=== PATIENT | female | born 1980 | race Caucasian/White ===

== ENCOUNTER → 2016-09-05 | Day surgery (SDC) | payer OTHER ==
[2016-08-15 12:08] LABS: BASO % 0.5 %; BASO ABS # 0.02 K/uL (0-0.2); COMPLETE YES; EOS % 2.4 %; HEMATOCRIT 39.2 % (37-47); IG% 0.2 %; LYMPH % 40.6 %; LYMPH ABS # 1.68 K/uL (1.2-3.4); MEAN CELL VOLUME 87.9 fL (80-100); MEAN CORPUSCULAR HEMOGLOBIN 28.7 pg (25-34); MEAN CORPUSCULAR HGB CONC 32.7 g/dl (32-36); MEAN PLATELET VOLUME 12.5 fL (7.4-10.4); MONO % 7.2 %; NEUT % 49.1 %; PLATELET COUNT 278 K/uL (130-400); RED BLOOD COUNT 4.46 M/uL (4.2-5.4); WHITE BLOOD COUNT 4.14 K/uL (4.8-10.8)
[2016-08-22 09:17] VITALS: Ht 180.3 cm; Wt 81.8 kg
[~2016-09-05] VITALS: Ht 180.3 cm; Wt 81.8 kg
[~2016-09-05] MED LIST: ATROPINE SULFATE 0.1 MG/ML 5ML SYR IV PRN; DEXAMETHASONE SOD INJ 4 MG/ML VIAL ONE; EpHEDrine SULFATE INJ 50 MG/ML AMP IV PRN; FENTANYL CITRATE INJ 50 MCG/1 ML 2 ML VIAL IV PRN; FENTANYL CITRATE INJ 50 MCG/1 ML 2 ML VIAL ONE; HYDROmorphone INJ 0.5 MG/0.5 ML SYR IV PRN; IBUPROFEN 600 MG TAB PO PRN; KETOROLAC TROMETHAMINE 30 MG/ML VIAL IV. PRN; LACTATED RINGER'S 1000ML 1,000 ML IV SCH; LETR2TAB PO; LIDOCAINE HCL 2% 2 ML VIAL (20MG/ML) ONE; MIDAZOLAM HCL 1 MG/ML 2ML VIAL ONE; ONDANSETRON INJ 2 MG/ML 2 ML VIAL IV PRN; ONDANSETRON INJ 2 MG/ML 2 ML VIAL ONE; OXYCODONE/ACETAMINOPHEN 5-325 TAB PO PRN; PROMETHAZINE HCL INJ 25 MG in SODIUM CHLORIDE 0.9% 50ML 50 ML IV PRN; PROPOFOL IV EMULSION 10 MG/ML 20 ML VIAL IV ONE; SERT-234 PO; SODIUM CHLORIDE 0.9% 1000ML 1,000 ML IV SCH
--- NOTE | 2016-09-05 11:06 | History & Physical Bridge - [place] ---
H&P Re-Evaluation Bridge Note: I have examined the patient, reviewed the History & Physical and in the interval since the performance of the History & Physical I have noted the following changes of clinical significance: No changes noted
--- NOTE | 2016-09-05 11:35 | [facility] Post Operative Brief Note ---
Immediate Operative Summary Operative Date Sep 05, 2016. Pre-Operative Diagnosis Endometrial polyp Post-Operative Diagnosis same Procedure(s) Performed Dilatation And Curettage, Hysteroscopy, Polypectomy via Myosure Surgeon Dr Monzon Lending Activities Supervisor Surgeon(s) 0 Estimated Blood Loss 10 ml Findings Benign polyp Specimens A.. Endometrial currettings B. Myosure Specimen Drains None Anesthesia General Complication(s) None Disposition Recovery Room / PACU
--- NOTE | 2016-09-05 11:36 | Discharge Instructions ---
Discharge Instructions Date of Service Sep 05, 2016. Admission Reason for Admission: Endometrial Polyp Discharge Discharge Diagnosis / Problem: endo polyp Discharge Goals Goal(s): Routine recovery after surgery Activity Recommendations Activity Limitations: per Instructions/Follow-up section . Instructions / Follow-Up Instructions / Follow-Up ACTIVITY RECOMMENDATIONS: * Avoid tampons, douching, hot tubs, pools, and intercourse until bleeding has stopped. * May shower as usual. * No strenuous activity for 24-48 hours. After 24-48 hours, you may do anything you feel like doing (driving and sports are okay). SPECIAL CARE INSTRUCTIONS: Special Diet: * Mild nausea may occur in the immediate post-operative period. * Take clear liquids such as tea, cola or bouillon until all nausea has subsided; you may then resume your normal diet. Special Care: * Light bleeding and vaginal spotting can last from a few days to 3-4 weeks. Call your doctor if bleeding becomes heavier than the heaviest part of your period. * Check your temperature twice a day for one week. If it goes above 100.4 degrees Fahrenheit (38.0 Celsius), notify your doctor. * Call your doctor's office for an appointment for 6 weeks after your surgery. FOLLOW-UP VISIT: Call your doctor's office for an appointment for 6 weeks after your surgery. Current Hospital Diet Patient's current hospital diet: Discharge Diet Recommended Diet: Regular Diet Procedures Procedures Performed: Dilatation And Curettage, Hysteroscopy, Polypectomy via Myosure Pending Studies Studies pending at discharge: no Medical Emergencies . Who to Call and When: Medical Emergencies: If at any time you feel your situation is an emergency, please call 911 immediately. . Non-Emergent Contact Non-Emergency issues call your: Primary Care Provider . . "Provider Documentation" section prepared by Adams Day. VTE Core Measure Inpt VTE Proph given/why not?: Treatment not indicated
--- NOTE | 2016-09-05 12:30 | OPERATIVE REPORT ---
DATE OF OPERATION: 09/05/2016 PREOPERATIVE DIAGNOSIS: Endometrial polyp. POSTOPERATIVE DIAGNOSIS: Endometrial polyp. PROCEDURES: Hysteroscopy, polypectomy with MyoSure. SURGEON: Dr. Day. LASER TECHNICIAN: None. ESTIMATED BLOOD LOSS: 10 mL. FINDINGS: Benign polyp. SPECIMENS: MyoSure specimen. DRAINS: None. ANESTHETIC: General. COMPLICATIONS: None. DISPOSITION: Recovery room. DESCRIPTION OF PROCEDURE: Mayte was given a general anesthetic, prepped and draped in dorsal lithotomy position in [facility]. Bladder drained with in and out catheter and then uterus examined. It was retroverted, retroflexed, and normal size. A weighted speculum placed in the vagina. Single tooth tenaculum on the anterior lip of the cervix. Cervix was then dilated methodically starting #13 dilator, progressing sequentially until a #25 dilator. Using the MyoSure hysteroscope with normal saline as her base solution, I was then able to visualize the cavity. There was a benign appearing polyp at the fundus of the uterus, the posterior aspect of the uterine wall as well was somewhat thickened and had a polypoid appearance. It also possibly was just thickened. Both tubal ostia were visualized. There was no sign of perforation. MyoSure was then used to resect the polyp, first the fundal one and then the back wall thickness of the endometrium. There was no sign of perforation and we were able to remove all of the visible tissue. At the end of the procedure, estimated blood loss 10 mL. Estimated fluid loss is 130 mL. Sponge, needle and instrument counts were correct. The patient sent to recovery in stable condition. IV Toradol given as well. I attest to the content of the Intraoperative Record and any orders documented therein. Any exceptio ns are noted below.
[2016-09-05 12:36] VITALS: TEMP 36.6
--- NOTE | 2016-09-05 13:01 | Anesthesiology Progress Note ---
Anesthesia Post Op Note Date & Time Sep 05, 2016 at 13:01 Vital Signs Pain Intensity: 0 Vital Signs Past 12 Hours Date Time Temp Pulse Resp B/P Pulse Ox O2 Delivery O2 Flow Rate FiO2 09/05/16 12:36 36.6 61 16 116/81 100 Room Air 09/05/16 12:26 111/70 09/05/16 12:23 37.0 09/05/16 12:22 64 10 99 09/05/16 12:22 62 10 09/05/16 12:21 112/73 09/05/16 12:20 59 9 09/05/16 12:20 59 9 100 09/05/16 12:15 57 15 112/72 98 09/05/16 12:15 58 15 09/05/16 12:10 59 8 09/05/16 12:10 60 8 108/72 100 09/05/16 12:06 108/69 09/05/16 12:05 55 8 100 09/05/16 12:05 55 8 09/05/16 12:04 57 11 100 09/05/16 12:04 57 11 09/05/16 12:01 112/67 09/05/16 11:59 61 9 100 09/05/16 11:59 61 9 09/05/16 11:56 116/67 09/05/16 11:54 57 10 100 09/05/16 11:54 57 10 09/05/16 11:51 108/74 09/05/16 11:49 62 16 100 09/05/16 11:49 62 16 09/05/16 11:47 36.8 62 14 117/78 100 Diffusion Mask 6 09/05/16 11:45 112/78 09/05/16 11:44 63 09/05/16 11:44 63 117/75 100 09/05/16 10:39 37 80 16 100/69 96 Room Air Notes Mental Status: alert / awake / arousable, participated in evaluation Pt Amnestic to Procedure: Yes Nausea / Vomiting: adequately controlled Pain: adequately controlled Airway Patency, RR, SpO2: stable & adequate BP & HR: stable & adequate Hydration State: stable & adequate Anesthetic Complications: no major complications apparent
[2016-09-05 13:08] VITALS: BP 128/83; PULSE 62; O2SAT 98
== END | disposition home or self-care (01) ==
LOC: X.SURG 10:28
PROVIDERS: ATTEND Obstetrics & Gynecology
DX: N84.0 Polyp of corpus uteri (principal); N97.9 Female infertility, unspecified; Z98.890 Other specified postprocedural states

== ENCOUNTER 2016-10-13 09:30 | Outpatient (CLI) | payer OTHER ==
--- NOTE | 2016-10-13 10:04 | Progress Note ---
Progress Note Date of Service Oct 13, 2016. Progress Note Patient presents for IUI #1. She presents with her SO. The numbers , names and birthdates on the band, specimen and lab slip reviewed and verified by myself and Katelin Baldwin RN. IUI done without difficulty--speculum placed, curved finance effectiveness manager inserted into the cervix easily. No complications.
== END 2016-10-13 10:19 | disposition home or self-care (01) ==
LOC: C.OPB 09:30 → C.LD 09:32 → C.OPB 10:19
PROVIDERS: ATTEND Obstetrics & Gynecology
DX: Z31.89 Encounter for other procreative management (principal)

== ENCOUNTER → 2016-10-13 | Outpatient (CLI) | payer OTHER ==
[~2016-10-13] MED LIST changes: -ATROPINE SULFATE 0.1 MG/ML 5ML SYR IV PRN; -DEXAMETHASONE SOD INJ 4 MG/ML VIAL ONE; -EpHEDrine SULFATE INJ 50 MG/ML AMP IV PRN; -FENTANYL CITRATE INJ 50 MCG/1 ML 2 ML VIAL IV PRN; -FENTANYL CITRATE INJ 50 MCG/1 ML 2 ML VIAL ONE; -HYDROmorphone INJ 0.5 MG/0.5 ML SYR IV PRN; -IBUPROFEN 600 MG TAB PO PRN; -KETOROLAC TROMETHAMINE 30 MG/ML VIAL IV. PRN; -LACTATED RINGER'S 1000ML 1,000 ML IV SCH; -LIDOCAINE HCL 2% 2 ML VIAL (20MG/ML) ONE; -MIDAZOLAM HCL 1 MG/ML 2ML VIAL ONE; -ONDANSETRON INJ 2 MG/ML 2 ML VIAL IV PRN; -ONDANSETRON INJ 2 MG/ML 2 ML VIAL ONE; -OXYCODONE/ACETAMINOPHEN 5-325 TAB PO PRN; -PROMETHAZINE HCL INJ 25 MG in SODIUM CHLORIDE 0.9% 50ML 50 ML IV PRN; -PROPOFOL IV EMULSION 10 MG/ML 20 ML VIAL IV ONE; -SODIUM CHLORIDE 0.9% 1000ML 1,000 ML IV SCH
== END | disposition home or self-care (01) ==
LOC: C.LAB 08:32
PROVIDERS: ATTEND Obstetrics & Gynecology
DX: N97.9 Female infertility, unspecified (principal)

== ENCOUNTER → 2016-11-01 | Outpatient (CLI) | payer OTHER | END | disposition home or self-care (01) | LOC: C.LAB1850 09:28 | PROVIDERS: ATTEND Obstetrics & Gynecology | DX: Z32.00 Encounter for pregnancy test, result unknown (principal) ==

== ENCOUNTER → 2017-01-18 | Outpatient (CLI) | payer OTHER ==
[2017-01-18 12:22] LABS: URINE APPEARANCE CLEAR (CLEAR); URINE BILIRUBIN NEG (NEG); URINE COLOR DK YELLOW; URINE NITRITE NEG (NEG); URINE PH 6.5 (4.5-7.5); URINE SPECIFIC GRAVITY 1.024 (1.000-1.030); UROBILINOGEN NEG (NEG)
[2017-01-18 12:23] LABS: COMPLETE YES; HEMATOCRIT 36.5 % (37-47); IG% 0.3 %; LYMPH % 22.9 %; LYMPH ABS # 1.36 K/uL (1.2-3.4); MEAN CELL VOLUME 86.7 fL (80-100); MEAN CORPUSCULAR HEMOGLOBIN 29.5 pg (25-34); MEAN PLATELET VOLUME 12.9 fL (7.4-10.4); NEUT % 70.8 %; PLATELET COUNT 205 K/uL (130-400); RED BLOOD COUNT 4.21 M/uL (4.2-5.4); WHITE BLOOD COUNT 5.95 K/uL (4.8-10.8)
[2017-01-18 12:34] LABS: MANUAL MICROSCOPIC REQUIRED? NO; REVIEW REQ? NO
[2017-01-20 14:08] LABS: CHLAMYDIA TRACH RNA*** NOT DETECTED (NOT DETECTED); GC (NEIS GONORRHOEAE)RNA** NOT DETECTED (NOT DETECTED)
== END | disposition home or self-care (01) ==
LOC: C.LAB1850 10:14
PROVIDERS: ATTEND Obstetrics & Gynecology
DX: O09.00 Supervision of pregnancy with history of infertility, unspecified trimester (principal); Z3A.00 Weeks of gestation of pregnancy not specified

== ENCOUNTER → 2017-01-18 | Outpatient (CLI) | payer OTHER | END | disposition home or self-care (01) | LOC: C.PAPS 11:12 | PROVIDERS: ATTEND Obstetrics & Gynecology | DX: O09.00 Supervision of pregnancy with history of infertility, unspecified trimester (principal); Z3A.00 Weeks of gestation of pregnancy not specified ==

== ENCOUNTER → 2017-04-17 | Outpatient (CLI) | payer OTHER ==
[2017-04-17 12:09] LABS: HEMATOCRIT 32.5 % (37-47)
[2017-04-17 12:34] LABS: GTGD 50 Grams
[2017-04-17 14:26] LABS: URINE APPEARANCE CLEAR (CLEAR); URINE BILIRUBIN NEG (NEG); URINE COLOR DK YELLOW; URINE EPITHELIAL CELL AUTO >30 /lpf (0-5); URINE NITRITE NEG (NEG); URINE PH 7.5 (4.5-7.5); URINE SPECIFIC GRAVITY 1.019 (1.000-1.030); UROBILINOGEN NEG (NEG)
[2017-04-17 14:31] LABS: MANUAL MICROSCOPIC REQUIRED? NO; REVIEW REQ? NO
== END | disposition home or self-care (01) ==
LOC: C.LAB1850 10:25
PROVIDERS: ATTEND Obstetrics & Gynecology
DX: Z34.83 Encounter for supervision of other normal pregnancy, third trimester (principal); Z3A.00 Weeks of gestation of pregnancy not specified

== ENCOUNTER → 2017-06-06 | Outpatient (CLI) | payer OTHER ==
[2017-06-06 12:31] LABS: PATIENT HEIGHT 190.5 cm
[2017-06-06 13:34] LABS: URINE TOTAL PROTEIN 24.2 mg/dl (0-11.9)
[2017-06-06 14:19] LABS: CREATININE 0.58 mg/dl (0.6-1.2)
== END | disposition home or self-care (01) ==
LOC: C.LAB1850 12:13
PROVIDERS: ATTEND Obstetrics & Gynecology
DX: O28.1 Abnormal biochemical finding on antenatal screening of mother (principal); O12.10 Gestational proteinuria, unspecified trimester

== ENCOUNTER → 2017-06-20 | Outpatient (CLI) | payer OTHER | END | disposition home or self-care (01) | LOC: C.LABSPEC 13:18 | PROVIDERS: ATTEND Obstetrics & Gynecology | DX: Z34.83 Encounter for supervision of other normal pregnancy, third trimester (principal) ==

== ENCOUNTER 2017-07-18 14:23 | Emergency (ER) | payer SELFPAY | END 2017-07-18 14:52 | disposition left against medical advice (07) | LOC: C.EDB 14:27 ==

== ENCOUNTER 2021-11-02 11:41 | Observation (INO) ==
[2021-11-02] MEDS ORDERED: MoRPHine SULFATE 4 MG/ML 1 ML CARP\\VIAL IV STA (12:36)
[2021-11-02] MEDS ORDERED: ONDANSETRON INJ 2 MG/ML 2 ML VIAL IV STA (12:36)
[2021-11-02] MEDS ORDERED: SODIUM CHLORIDE 0.9% 1000ML 1,000 ML IV SCH (12:37)
--- NOTE | 2021-11-02 13:02 | Emergency Department Note ---
History of Present Illness General Chief complaint: Abdominal Pain Stated complaint: PAIN IN UPPER ABDOMINAL GOING TO BACK Time Seen by Provider: 11/02/21 11:50 History of Present Illness Maximum Pain Intensity: 8 Patient is a 41-year-old female with past medical history significant for a nxiety, depression, Graves' disease, who presents emergency department for evaluation of severe right upper quadrant abdominal pain x7 hours. She notes that she has had 2 prior episodes of similar pain earlier this week, 4 days ago and 2 days ago. She reports a constant, gnawing pain in the right upper quadrant that radiates through to her back. It woke her at 0600 today. She currently rates her pain a 9/10. She has not tried taking any medications for her symptoms. She denies any associated fever, chills, nausea, vomiting or urinary symptoms. She states that she has diarrhea routinely from the onset Graves disease, denies any changes in her bowel habits or bloody stools. She uses a NuvaRing for contraceptive, last menstrual period was about 3 weeks ago. She states that the prior episodes of pain lasted her 5 hours or so, but did go away nearly completely. She was only left with a 1/10 aching pain. She did try ibuprofen earlier this week which did help. She was seen at her primary care provider's office this morning, but they directed her to the emergency department due to her pain and symptoms. Remote family history of gallbladder disease. She reports that was diagnosed with presumptive Graves' disease recently, but additional testing could not be done at that time to confirm. She is due to see endocrinology in December. Patient has been seeing a wellness clinic since. She had dietary allergy testing which was positive for nuts, eggs and beans. She also has a gluten allergy, and completely eliminated this from her diet in the fall. She now follows a Paleo/AIP diet. Home Medications Medication Instructions Recorded Confirmed Type sertraline 100 mg tablet 100 mg PO DAILY 04/25/20 04/25/20 History Allergies Allergy/AdvReac Type Severity Reaction Status Date / Time latex Allergy Unknown BROKE OUT Verified 04/25/20 18:43 IN RASH paroxetine Allergy Unknown ITCHING, Verified 04/25/20 18:43 RACING THOUGHTS Past Med/Surg History Medical History Anxiety Depression Gluten intolerance Graves disease Surgical History No history of previous surgery Social History Smoking Status: Never smoker marital status: Current Living Situation: Family current occupational status: employed Feels Safe at Home: Yes Review of Systems A total of 10 systems reviewed and were otherwise negative Physical Exam Vital Signs Vital Signs - 24 hr 11/02/21 11:44 11/02/21 13:55 11/02/21 14:40 Temperature 36.3 C L Temperature Source Oral Pulse Rate 59 L Pulse Rate [Apical] 54 L 61 Pulse Rhythm [Apical] Regular Regular Pulse Strength [Apical] Normal Normal Respiratory Rate 15 14 18 Respiratory Effort / Characteristics Non-Labored Spontaneous Non-Labored Spontaneous Respiratory Depth Normal Normal Respiratory Pattern Regular Blood Pressure [Right Arm] 134/89 131/78 Blood Pressure Mean [Right Arm] 104 95 Blood Pressure Position [Right Arm] Semi-fowlers Lying Pulse Oximetry 100 100 100 Oxygen Delivery Method Room Air Room Air Room Air Sepsis Recent Fever Within 48 Hours No Sepsis New/Unexplained Change in Mental Status N/A Sepsis Action Taken by Nursing No Action Required 11/02/21 16:00 Temperature Temperature Source Pulse Rate Pulse Rate [Apical] Pulse Rhythm [Apical] Pulse Strength [Apical] Respiratory Rate 18 Respiratory Effort / Characteristics Non-Labored Respiratory Depth Normal Respiratory Pattern Blood Pressure [Right Arm] Blood Pressure Mean [Right Arm] Blood Pressure Position [Right Arm] Pulse Oximetry 95 Oxygen Delivery Method Room Air Sepsis Recent Fever Within 48 Hours Sepsis New/Unexplained Change in Mental Status Sepsis Action Taken by Nursing CONSTITUTIONAL: Tearful, uncomfortable appearing 41-year-old female who is awake and alert and laying on her right side on the gurney. EYES: Pupils equal, round, reactive to light and accommodation. EOMs intact without nystagmus. Sclera are anicteric. ENT: Tympanic membranes intact, with normal landmarks. External canals are clear. Oral and nasopharynx are clear. Mucous membranes are moist, no lesions, tongue and gums appear normal. CARDIOVASCULAR: Regular rate and rhythm, with normal S1 and S2, no murmur or gallop or rub is heard. No carotid bruits auscultated. No JVD. Peripheral pulses easy to palpable. RESPIRATORY: Breath sounds equal and clear to auscultation without wheezes, rales, or rhonchi heard. Full and equal chest expansion without accessory muscle use or retractions. GI: Bowel sounds are present. Abdomen is soft, mildly distended, tender to palpation and percussion in the epigastric and the right upper quadrant with voluntary guarding. MUSCULOSKELETAL: Full range of motion of extremities x 4 with good strength. No cyanosis, edema, joint tenderness or swelling. No deformity. INTEGUMENTARY: No lesions or rash, normal skin turgor. NEUROLOGICAL: Alert, oriented, and cooperative. Cranial nerves, sensation and strength grossly intact. Pupils round, equal, and react to light, EOMs are full. LYMPH: No lymphadenopathy. Course Course The patient was seen and assessed as above. Old records are reviewed. She presents the emergency department for evaluation of right upper quadrant abdominal pain, she has had a few episodes earlier this week. IV lock was initiated and laboratory studies were collected. CBC with differential, CMP, lipase, urinalysis, serum hCG were ordered. She was given a liter bolus of normal saline solution, then 250 cc/h. She was medicated with Zofran 4 mg and morphine 4 mg IV. She was made NPO. Laboratory studies note a normal white count. Electrolytes renal functions are normal. Transaminases and lipase are not elevated. Serum hCG is negative. Nursing staff contacted me after the patient returned from ultrasound, stating that the pain was returning. She was ordered morphine 6 mg IV. Gallbladder ultrasound notes cholelithiasis with findings concerning for acute cholecystitis. No biliary ductal dilatation. Patient was reassessed. She had not received the additional morphine. Laboratory studies and gallbladder ultrasound findings were reviewed with her and her spouse. Consultation was placed with general surgery, Padmini Cabezas PA-C working with Dr. Yury Cano. They evaluated the patient in the emergency department and will plan to take her to the OR this evening. Please refer to surgical H&P and orders for further information. A COVID swab was obtained. Administered Medications Sodium Chloride (Nss 1000ml) 1,000 mls @ 250 mls/hr IV .Q4H [facility] Stop: 12/02/21 12:44 Last Admin: 11/02/21 15:16 Dose: 250 mls/hr Documented by: [id number] Discontinued Medications Sodium Chloride (Nss 1000ml) 1,000 mls @ 999 mls/hr IV .Q1H1M [facility] Stop: 11/02/21 13:37 Last Infusion: 11/02/21 15:04 Dose: 0 mls/hr Documented by: [id number] Admin: 11/02/21 13:09 Dose: 999 mls/hr Documented by: [id number] Morphine Sulfate (Morphine Sulfate 4 Mg/Ml 1 Ml Carp\Vial) 4 mg IV NOW STA Stop: 11/02/21 12:37 Last Admin: 11/02/21 13:08 Dose: 4 mg Documented by: [id number] Morphine Sulfate (Morphine Sulfate 10 Mg/Ml Carp/Vial) 6 mg IV NOW STA Stop: 11/02/21 14:41 Last Admin: 11/02/21 15:17 Dose: 6 mg Documented by: [id number] Ondansetron HCl (Ondansetron Inj 2 Mg/Ml 2 Ml Vial) 4 mg IV NOW STA Stop: 11/02/21 12:37 Last Admin: 11/02/21 13:08 Dose: 4 mg Documented by: [id number] Medical Decision Making Differential Diagnosis Differential diagnoses entertained included GERD, gastritis, esophagitis, peptic ulcer disease, acute pancreatitis, biliary colic, acute cholecystitis, ascending cholangitis, fell obstruction, perforation, abscess, mass or malignancy, among others. Medical Records Attestation: I reviewed the patient's medical records. Home Medications Current Medication List: was personally reviewed by me Laboratory Data Attestation: I reviewed the patient's lab results. Result diagrams: 11/02/21 13:15 11/02/21 13:15 Lab Results 11/02/21 11/02/21 11/02/21 Range/Units 13:15 13:15 13:15 WBC 7.97 (4.8-10.8) K/uL RBC 4.68 (4.2-5.4) M/uL Hgb 13.8 (12.0-16.0) g/dL Hct 41.4 (37-47) % MCV 88.5 (80-100) fL MCH 29.5 (25-34) pg MCHC 33.3 (32-36) g/dL RDW Std Deviation 41.3 (36.4-46.3) fL RDW Coeff of Di 12.8 (11.5-14.5) % Plt Count 223 (130-400) K/uL MPV 13.7 H (7.4-10.4) fL Immature Gran % (Auto) 0.3 % Neut % (Auto) 64.1 % Lymph % (Auto) 27.4 % Love % (Auto) 6.5 % Eos % (Auto) 1.6 % Baso % (Auto) 0.1 % Neut # (Auto) 5.11 (1.4-6.5) K/uL Lymph # (Auto) 2.18 (1.2-3.4) K/uL Love # (Auto) 0.52 (0.11-0.59) K/uL Eos # (Auto) 0.13 (0-0.5) K/uL Baso # (Auto) 0.01 (0-0.2) K/uL Immature Gran # (Auto) 0.02 (0.00-0.02) K/uL Sodium 140 (136-145) mmol/L Potassium 3.6 (3.5-5.1) mmol/L Chloride 109 H (98-107) mmol/L Carbon Dioxide 23 (21-32) mmol/L Anion Gap 8 (3-11) BUN 11 (6-23) mg/dl Creatinine 0.73 (0.6-1.2) mg/dl Est Cr Clr Drug Dosing Not Reportable Est GFR ( Amer) 117.7 ml/min Est GFR (Non-Af Amer) 101.6 ml/min BUN/Creatinine Ratio 15.1 (10-20) Glucose 89 (70-99(Fasting)) mg/dl Calcium 9.4 (8.5-10.1) mg/dl Total Bilirubin 0.5 (0.2-1.0) mg/dl AST 13 (13-39) U/L ALT 16 (7-52) U/L Alkaline Phosphatase 58 (34-104) U/L Total Protein 6.5 (6.0-8.3) gm/dl Albumin 3.8 (3.4-5.0) gm/dl Globulin 2.7 (2.5-4.0) gm/dl Albumin/Globulin Ratio 1.4 (0.9-2) Lipase 35 (11-82) U/L HCG, Qual Negative (Negative) SARS-CoV-2, RNA, NAAT (NEGATIVE) 11/02/21 Range/Units 15:30 WBC (4.8-10.8) K/uL RBC (4.2-5.4) M/uL Hgb (12.0-16.0) g/dL Hct (37-47) % MCV (80-100) fL MCH (25-34) pg MCHC (32-36) g/dL RDW Std Deviation (36.4-46.3) fL RDW Coeff of Di (11.5-14.5) % Plt Count (130-400) K/uL MPV (7.4-10.4) fL Immature Gran % (Auto) % Neut % (Auto) % Lymph % (Auto) % Love % (Auto) % Eos % (Auto) % Baso % (Auto) % Neut # (Auto) (1.4-6.5) K/uL Lymph # (Auto) (1.2-3.4) K/uL Love # (Auto) (0.11-0.59) K/uL Eos # (Auto) (0-0.5) K/uL Baso # (Auto) (0-0.2) K/uL Immature Gran # (Auto) (0.00-0.02) K/uL Sodium (136-145) mmol/L Potassium (3.5-5.1) mmol/L Chloride (98-107) mmol/L Carbon Dioxide (21-32) mmol/L Anion Gap (3-11) BUN (6-23) mg/dl Creatinine (0.6-1.2) mg/dl Est Cr Clr Drug Dosing Est GFR ( Amer) ml/min Est GFR (Non-Af Amer) ml/min BUN/Creatinine Ratio (10-20) Glucose (70-99(Fasting)) mg/dl Calcium (8.5-10.1) mg/dl Total Bilirubin (0.2-1.0) mg/dl AST (13-39) U/L ALT (7-52) U/L Alkaline Phosphatase (34-104) U/L Total Protein (6.0-8.3) gm/dl Albumin (3.4-5.0) gm/dl Globulin (2.5-4.0) gm/dl Albumin/Globulin Ratio (0.9-2) Lipase (11-82) U/L HCG, Qual (Negative) SARS-CoV-2, RNA, NAAT NEGATIVE (NEGATIVE) Imaging Data Attestation: I personally reviewed and interpreted this imaging study as fo llows: Radiologist's Impression: Gallbladder Ultrasound 11/02/21 12:36 US gallbladder HISTORY: 41 years-old Female RUQ PAIN X 4 DAYS acute right upper quadrant abdominal pain COMPARISON: CTA chest 04/25/2020 TECHNIQUE: Multiple real-time sonographic images of the abdominal right upper quadrant were obtained assessing grayscale appearance and color flow FINDINGS: The visualized pancreas is unremarkable. The liver measures up to 17.1 cm in length and is otherwise unremarkable. There is a mobile 1.3 cm stone noted w ithin the distended gallbladder neck. Trace pericholecystic fluid the gallbladder wall measures up to 4 mm. There is reported right upper quadrant tenderness. The sonographic Ayala sign was unable to be obtained secondary to recent pain medication. Common bile duct measures 6 mm. Unremarkable right kidney without hydronephrosis. IMPRESSION: 1. Cholelithiasis. The gallbladder is distended with mild wall thickening and trace pericholecystic fluid. Findings are suspicious for acute cholecystitis. 2. No biliary ductal dilation. ACT 112: Negative or not required by law. The above report was generated using voice recognition software. It may contain grammatical, syntax or spelling errors. Electronically signed by: Leandro Wright M.D. 11/02/2021 2:48 PM MDM Narrative See ED Course. Impression & Plan Acute calculous cholecystitis Discharge Plan Visit Data Chief Complaint: Abdominal Pain Stated Complaint: PAIN IN UPPER ABDOMINAL GOING TO BACK ED Provider: [facility] Midlevel Provider: Nino Zhang Discharge Problem: Acute calculous cholecystitis Patient Disposition: Being Evaluated by Surgeon Forms Stand Alone Forms: My [facility] [employer] Prescriptions Prescriptions: No Action sertraline 100 mg tablet 100 mg PO DAILY RF: 0 Referrals Referrals: Nina Thompson CRNP [Primary Care Provider] -
[2021-11-02 13:29] LABS: Basophils # (auto) 0.01 K/uL (0-0.2); Basophils % (auto) 0.1 %; Eosinophils # (auto) 0.13 K/uL (0-0.5); Eosinophils % (auto) 1.6 %; Hematocrit (blood only) 41.4 % (37-47); Hemoglobin 13.8 g/dL (12.0-16.0); Immature Granulocytes # (auto) 0.02 K/uL (0.00-0.02); Immature Granulocytes % (auto) 0.3 %; Lymphocytes # (auto) 2.18 K/uL (1.2-3.4); Lymphocytes % (auto) 27.4 %; Mean Corpuscular Hemoglobin 29.5 pg (25-34); Mean Corpuscular Hgb Conc 33.3 g/dL (32-36); Mean Corpuscular Volume 88.5 fL (80-100); Mean Platelet Volume 13.7 fL (7.4-10.4); Monocytes # (auto) 0.52 K/uL (0.11-0.59); Monocytes % (auto) 6.5 %; Neutrophils # (auto) 5.11 K/uL (1.4-6.5); Neutrophils % (auto) 64.1 %; Platelet Count 223 K/uL (130-400); RDW Coefficient of Variation 12.8 % (11.5-14.5); RDW Standard Deviation 41.3 fL (36.4-46.3); Red Blood Count 4.68 M/uL (4.2-5.4); White Blood Count 7.97 K/uL (4.8-10.8)
[2021-11-02 13:59] LABS: Alanine Aminotransferase 16 U/L (7-52); Albumin Globulin Ratio 1.4 (0.9-2); Albumin Level 3.8 gm/dl (3.4-5.0); Alkaline Phosphatase 58 U/L (34-104); Anion Gap 8 (3-11); Aspartate Aminotransferase 13 U/L (13-39); BUN Creatinine Ratio 15.1 (10-20); Bilirubin,Total 0.5 mg/dl (0.2-1.0); Blood Urea Nitrogen 11 mg/dl (6-23); Calcium 9.4 mg/dl (8.5-10.1); Carbon Dioxide 23 mmol/L (21-32); Chloride 109 mmol/L (98-107); Est GFR (African American) 117.7 ml/min; Est GFR (Non-African American) 101.6 ml/min; Globulin 2.7 gm/dl (2.5-4.0); Glucose 89 mg/dl (70-99(Fasting)); Lipase 35 U/L (11-82); Potassium 3.6 mmol/L (3.5-5.1); Sodium 140 mmol/L (136-145); Total Protein 6.5 gm/dl (6.0-8.3)
[2021-11-02 14:14] LABS: Pregnancy Test, Serum Negative (Negative)
[2021-11-02] MEDS ORDERED: MoRPHine SULFATE 10 MG/ML CARP/VIAL IV STA (14:40)
--- NOTE | 2021-11-02 14:50 | Ultrasound Report ---
US gallbladder HISTORY: 41 years-old Female RUQ PAIN X 4 DAYS acute right upper quadrant abdominal pain COMPARISON: CTA chest 04/25/2020 TECHNIQUE: Multiple real-time sonographic images of the abdominal right upper quadrant were obtained assessing grayscale appearance and color flow FINDINGS: The visualized pancreas is unremarkable. The liver measures up to 17.1 cm in length and is otherwise unremarkable. There is a mobile 1.3 cm stone noted within the distended gallbladder neck. Trace peric holecystic fluid the gallbladder wall measures up to 4 mm. There is reported right upper quadrant ten derness. The sonographic Ayala sign was unable to be obtained secondary to recent pain medication. C ommon bile duct measures 6 mm. Unremarkable right kidney without hydronephrosis. IMPRESSION: 1. Cholelithiasis. The gallbladder is distended with mild wall thickening and trace pericholecystic f luid. Findings are suspicious for acute cholecystitis. 2. No biliary ductal dilation. ACT 112: Negative or not required by law. The above report was generated using voice recognition software. It may contain grammatical, syntax o r spelling errors. Electronically signed by: Leandro Wright M.D. 11/02/2021 2:48 PM
[2021-11-02] MEDS: SODIUM CHLORIDE 0.9% 1000ML 1,000 ML IV SCH ×2 (15:16→20:35)
--- NOTE | 2021-11-02 15:56 | Anesthesiology Consultation ---
Date of Service November 02, 2021 Assessment & Plan (1) Encounter for pre-operative examination: Chart Review Chart Review: Acceptable Risk for Surgery and Patient NOT seen in Pre Admission Testing Consults Requested none History Surgery Operation Date: 11/02/21 10:45 Proposed Procedures p Laparoscopic Cholecystectomy - Yury Cano MD Height/Weight Height: 5 ft 11 in Allergies Allergy/AdvReac Type Severity Reaction Status Date / Time latex Allergy Unknown BROKE OUT Verified 04/25/20 18:43 IN RASH paroxetine Allergy Unknown ITCHING, Verified 04/25/20 18:43 RACING THOUGHTS Medications Home Medications Medication Instructions Recorded Confirmed Last Taken sertraline 100 mg tablet 100 mg PO DAILY 04/25/20 04/25/20 Unknown Active Medications Generic Name Dose Route Start Last Admin Trade Name Freq PRN Reason Stop Dose Admin Sodium Chloride 1,000 mls @ 250 mls/hr 11/02/21 12:45 11/02/21 15:16 Nss 1000ml IV 12/02/21 12:44 250 mls/hr .Q4H ADALI Administration Past Medical History Medical History Anxiety Depression Gluten intolerance Graves disease Past Surgical History Surgical History No history of previous surgery Social History Smoking Status: Never smoker Physical Exam Vital Signs Last Vital Signs Temp 97.3 F L 11/02/21 11:44 Pulse 61 11/02/21 14:40 Resp 18 11/02/21 14:40 BP 131/78 11/02/21 14:40 Pulse Ox 100 11/02/21 14:40 Testing Laboratory Results 11/02/21 13:15 11/02/21 13:15 Electrocardiogram Date: 11/02/21 Findings: + NSR @
--- NOTE | 2021-11-02 16:14 | History & Physical Report ---
Date of Service November 02, 2021 Assessment & Plan (1) Acute calculous cholecystitis: Plan: 41-year-old female who presented to the emergency room with right upper quadrant abdominal pain with radiation to her back that has been present since 6 AM. Has also had 2 similar episodes this past week however have not been as severe. No fevers no chills no nausea or vomiting. Her labs are unremarkable and T bili and LFTs are within normal limits. Ultrasound showing stone in the gallbladder neck with gallbladder wall thickness and pericholecystic fluid consistent with acute cholecystitis. On exam she is tender in the right upper quadrant with positive Ayala sign. No peritonitis or rigidity. Plan: Discussed imaging findings as well as her lab results with patient and her exam is consistent with acute cholecystitis. Discussed laparoscopic cholecystectomy procedure and associated risks and expected recovery time. Dr. Cano also discussed this with patient. Informed consent obtained. We will plan to take her to the operating room at the earliest convenience. Preop COVID testing. We will give 2 g of IV cefoxitin for preop antibiotics. Keep NPO. Will likely stay overnight for observation and pain management likely home tomorrow morning if everything goes well intraoperatively. Dr. Cano has seen and examined patient and agrees with above. History of Present Illness Chief Complaint: Abdominal pain Primary Care Provider: RODERICK Rico is a 41 year old female who presented to the emergency room with complaint of right upper sided abdominal pain with radiation to her back that has been present since 6 AM. She states she has had similar episodes about 3 times this week which started on Saturday however have not been this severe. She has had similar episodes in the past but not as severe and thought it was due to her gluten allergy. She denies of any fevers, chills, nausea, vomiting, diarrhea, constipation, blood in the stools, acholic stools, difficulty urinating, blood in the urine. She recently changed to a keto diet in March and has lost some weight but not sure of exact amount and not a drastic weight change. She eats pretty healthy. No history of abdominal surgeries. Allergies Allergy/AdvReac Type Severity Reaction Status Date / Time latex Allergy Unknown BROKE OUT Verified 04/25/20 18:43 IN RASH paroxetine Allergy Unknown ITCHING, Verified 04/25/20 18:43 RACING THOUGHTS Home Medications Medication Instructions Recorded Confirmed Type sertraline 100 mg tablet 100 mg PO DAILY 04/25/20 04/25/20 History Past Med/Surg History Medical History Anxiety Depression Gluten intolerance Graves disease Surgical History No history of previous surgery Social History Smoking Status: Never smoker marital status: Current Living Situation: Family current occupational status: employed Feels Safe at Home: Yes Physical Exam Constitutional: WD/WN, vitals as above no acute distress and not ill appearing Respiratory: normal respiratory effort, lungs clear to auscultation Cardiovascular: RRR, no murmur, no edema Gastrointestinal (Abdomen): Inspection/Auscultation: abdomen normal to inspection; abdomen not distended Percussion/Palpation: + abdomen tender (RUQ + Florence sign), + guarding (RUQ on deep palpation) and abdomen soft; abdomen not rigid and abdomen not firm Skin: no rashes, warm and dry Psychiatric: A+Ox3, euthymic affect Results & Data Results & Data ([facility]) Vital Signs (Past 12 Hours) Vital Signs Temp Pulse Pulse Resp BP Pulse Ox 11/02/21 14:40 61 18 131/78 100 11/02/21 13:55 54 L 14 134/89 100 11/02/21 11:44 36.3 C L 59 L 15 100 Laboratory Results 11/02/21 11/02/21 11/02/21 Range/Units 15:30 13:15 13:15 WBC (4.8-10.8) K/uL RBC (4.2-5.4) M/uL Hgb (12.0-16.0) g/dL Hct (37-47) % MCV (80-100) fL MCH (25-34) pg MCHC (32-36) g/dL RDW Std Deviation (36.4-46.3) fL RDW Coeff of Di (11.5-14.5) % Plt Count (130-400) K/uL MPV (7.4-10.4) fL Immature Gran % (Auto) % Neut % (Auto) % Lymph % (Auto) % [place] % (Auto) % Eos % (Auto) % Baso % (Auto) % Neut # (Auto) (1.4-6.5) K/uL Lymph # (Auto) (1.2-3.4) K/uL [place] # (Auto) (0.11-0.59) K/uL Eos # (Auto) (0-0.5) K/uL Baso # (Auto) (0-0.2) K/uL Immature Gran # (Auto) (0.00-0.02) K/uL Sodium 140 (136-145) mmol/L Potassium 3.6 (3.5-5.1) mmol/L Chloride 109 H (98-107) mmol/L Carbon Dioxide 23 (21-32) mmol/L Anion Gap 8 (3-11) BUN 11 (6-23) mg/dl Creatinine 0.73 (0.6-1.2) mg/dl Est Cr Clr Drug Dosing Not Reportable Est GFR ( Amer) 117.7 ml/min Est GFR (Non-Af Amer) 101.6 ml/min BUN/Creatinine Ratio 15.1 (10-20) Glucose 89 (70-99(Fasting)) mg/dl Calcium 9.4 (8.5-10.1) mg/dl Total Bilirubin 0.5 (0.2-1.0) mg/dl AST 13 (13-39) U/L ALT 16 (7-52) U/L Alkaline Phosphatase 58 (34-104) U/L Total Protein 6.5 (6.0-8.3) gm/dl Albumin 3.8 (3.4-5.0) gm/dl Globulin 2.7 (2.5-4.0) gm/dl Albumin/Globulin Ratio 1.4 (0.9-2) Lipase 35 (11-82) U/L HCG, Qual Negative (Negative) SARS-CoV-2, RNA, NAAT NEGATIVE (NEGATIVE) 11/02/21 Range/Units 13:15 WBC 7.97 (4.8-10.8) K/uL RBC 4.68 (4.2-5.4) M/uL Hgb 13.8 (12.0-16.0) g/dL Hct 41.4 (37-47) % MCV 88.5 (80-100) fL MCH 29.5 (25-34) pg MCHC 33.3 (32-36) g/dL RDW Std Deviation 41.3 (36.4-46.3) fL RDW Coeff of Di 12.8 (11.5-14.5) % Plt Count 223 (130-400) K/uL MPV 13.7 H (7.4-10.4) fL Immature Gran % (Auto) 0.3 % Neut % (Auto) 64.1 % Lymph % (Auto) 27.4 % [place] % (Auto) 6.5 % Eos % (Auto) 1.6 % Baso % (Auto) 0.1 % Neut # (Auto) 5.11 (1.4-6.5) K/uL Lymph # (Auto) 2.18 (1.2-3.4) K/uL [place] # (Auto) 0.52 (0.11-0.59) K/uL Eos # (Auto) 0.13 (0-0.5) K/uL Baso # (Auto) 0.01 (0-0.2) K/uL Immature Gran # (Auto) 0.02 (0.00-0.02) K/uL Sodium (136-145) mmol/L Potassium (3.5-5.1) mmol/L Chloride (98-107) mmol/L Carbon Dioxide (21-32) mmol/L Anion Gap (3-11) BUN (6-23) mg/dl Creatinine (0.6-1.2) mg/dl Est Cr Clr Drug Dosing Est GFR ( Amer) ml/min Est GFR (Non-Af Amer) ml/min BUN/Creatinine Ratio (10-20) Glucose (70-99(Fasting)) mg/dl Calcium (8.5-10.1) mg/dl Total Bilirubin (0.2-1.0) mg/dl AST (13-39) U/L ALT (7-52) U/L Alkaline Phosphatase (34-104) U/L Total Protein (6.0-8.3) gm/dl Albumin (3.4-5.0) gm/dl Globulin (2.5-4.0) gm/dl Albumin/Globulin Ratio (0.9-2) Lipase (11-82) U/L HCG, Qual (Negative) SARS-CoV-2, RNA, NAAT (NEGATIVE) Diagnostic Findings US gallbladder HISTORY: 41 years-old Female RUQ PAIN X 4 DAYS acute right upper quadrant abdominal pain COMPARISON: CTA chest 04/25/2020 TECHNIQUE: Multiple real-time sonographic images of the abdominal right upper quadrant were obtained assessing grayscale appearance and color flow FINDINGS: The visualized pancreas is unremarkable. The liver measures up to 17.1 cm in length and is otherwise unremarkable. There is a mobile 1.3 cm stone noted within the distended gallbladder neck. Trace pericholecystic fluid the gallbladder wall measures up to 4 mm. There is reported right upper quadrant tenderness. The sonographic Ayala sign was unable to be obtained secondary to recent pain medication. Common bile duct measures 6 mm. Unremarkable right kidney without hydronephrosis. IMPRESSION: 1. Cholelithiasis. The gallbladder is distended with mild wall thickening and trace pericholecystic fluid. Findings are suspicious for acute cholecystitis. 2. No biliary ductal dilation. Code Status & VTE Plan VTE Prophylaxis Plan VTE Prophylaxis will be ordered: Yes Supervising Physician Co-Signing Physician Notes I have seen and examined the patient personally, and agree with the physical exam, assessment and plan. In brief this is a 41-year-old woman who presents with acute cholecystitis. Labs are normal, ultrasound does not demonstrate any ductal dilatation. I have discussed risks and benefits of laparoscopic cholecystectomy as well as recovery and postoperative restrictions. All questions were answered, and she is agreeable to proceed. Consent has been obtained. We will take her to the operating room at the earliest convenience.
[2021-11-02] MEDS ORDERED: BUPIVACAINE/EPINEPHRINE 0.25% 1:200,000 30 ML VIAL ONE (16:16)
[2021-11-02] MEDS ORDERED: ONDANSETRON INJ 2 MG/ML 2 ML VIAL IV PRN ×2 (16:36→19:50)
[2021-11-02] MEDS ORDERED: ATROPINE SULFATE 0.1 MG/ML 10ML SYR IV PRN (16:36)
[2021-11-02] MEDS ORDERED: ePHEDrine sulfate 50 MG/ML AMP IV PRN (16:36)
[2021-11-02] MEDS ORDERED: MIDAZOLAM HCL 1 MG/ML 2ML VIAL ONE (16:39)
[2021-11-02] MEDS ORDERED: fentaNYL citrate 100 MCG/2 ML VIAL ONE (16:39)
[2021-11-02] MEDS ORDERED: cefOXitin 2,000 MG in DEXTROSE 5% 50 ML IV ONE (17:06)
[2021-11-02] MEDS ORDERED: LIDOCAINE 2% 2 ML VIAL/AMP(20MG/ML) INFIL ONE (17:07)
[2021-11-02] MEDS ORDERED: PROPOFOL IV EMULSION 10 MG/ML 20 ML VIAL IV ONE (17:08)
[2021-11-02] MEDS ORDERED: ROCURONIUM BROMIDE 10 MG/ML 5 ML VIAL IV ONE (17:08)
[2021-11-02] MEDS ORDERED: DEXAMETHASONE SOD INJ 4 MG/ML VIAL ONE ×2 (17:09)
[2021-11-02] MEDS ORDERED: ONDANSETRON INJ 2 MG/ML 2 ML VIAL ONE (17:09)
[2021-11-02] MEDS ORDERED: GLYCOPYRROLATE 0.2 MG/ML VIAL ONE (17:18)
[2021-11-02] MEDS ORDERED: NEOSTIGMINE METHYLSULFATE 1 MG/ML 10ML VIAL ONE (17:18)
[2021-11-02] MEDS ORDERED: KETOROLAC 30 MG/ML VIAL ONE (17:38)
--- NOTE | 2021-11-02 17:45 | Post Operative Brief Note ---
Immediate Post Op Note v1 Date of Surgery November 02, 2021 Pre & Post Diagnosis Operation Date: 11/02/21 10:45 Pre-Op Diagnosis: Acute calculous cholecystitis Post-Op Diagnosis: Acute calculous cholecystitis I identified the patient and participated in the time-out.: Yes Procedure Operation Date: 11/02/21 10:45 Actual Procedures p Laparoscopic Cholecystectomy - Yury Cano MD Surgeon Yury Cano MD Orthotist Or Prosthetist VICKY Cabezas assisted with tissue retraction, camera op, closure Estimated Blood Loss 5 Findings Consistent with Post-Op Diagnosis
--- NOTE | 2021-11-02 17:46 | Operative Report ---
Post Operative Report Pre & Post Diagnosis Operation Date: 11/02/21 10:45 Pre-Op Diagnosis: Acute calculous cholecystitis Post-Op Diagnosis: Acute calculous cholecystitis I identified the patient and participated in the time-out.: Yes Procedure Operation Date: 11/02/21 10:45 Actual Procedures p Laparoscopic Cholecystectomy - Yury Cano MD Surgeon Yury Cano MD Literature Professor VICKY Cabezas assisted with tissue retraction, camera op, closure Estimated Blood Loss 5 Findings Consistent with Post-Op Diagnosis Acute cholecystitis with severely inflamed and distended gallbladder; hydrops of the gallbladder Specimens Gallbladder Anesthesia Type General Complications No immediate complications Description of Procedure The patient was taken to the operating room, and placed supine on the operating table. A timeout was performed, perioperative antibiotics were administered, SCD boots were placed. After adequate anesthesia and analgesia was obtained, the abdomen was prepped and draped in the normal sterile fashion. Local anesthetic was injected into and around the proposed incision sites. An incision was made with a 15 blade scalpel in the supraumbilical region and carried down to the level of the fascia. The fascia was grasped with a trach hook, and a varies needle was used to enter the abdominal cavity. The abdomen was insufflated to a pressure of 15 mmHg, and a 11 mm trocar was placed in this location. A 10 mm, 30 degree laparoscope was placed into the abdominal cavity, and the abdomen was surveyed. The gallbladder was severely inflamed and distended in the right upper quadrant. Two 5 mm trochars were placed along the right costal margin, and one 5 mm trocar was placed in the subxiphoid region under direct visualization. The gallbladder was drained with an 18-gauge aspiration needle. The fluid was clear, indicating a hydrops of the gallbladder. The gallbladder was then grasped and retracted cephalad and laterally, exposing the triangle of Calot. Dissection began in the triangle with a combination of blunt dissection with the [place] dissector, and judicious use of the hook cautery. The cystic duct and cystic artery were dissected free circumferentially, and a critical view of safety was obtained. The cystic duct and cystic artery were clipped and transected, and the gallbladder was removed from the gallbladder fossa with the hook cautery. The camera was switched to a 5 mm, the gallbladder was placed in an Endo Catch bag, and removed via the supraumbilical port site. The camera was switched back to the 10 mm camera, and the abdomen was surveyed again. Hemostasis was checked and attended, and was excellent. The abdomen was copiously irrigated and suctioned free. Again hemostasis was checked and was excellent. All trochars were removed under direct visualization. The abdomen was desufflated. The fascia in the 11 mm port site was closed with a 0 Vicryl suture. The skin was closed with a running 4-0 Monocryl subcuticular stitch. Dermabond was applied. The patient tolerated the procedure without complication, and was transferred in stable condition to the PACU. All instrument, needle, and sponge counts were correct at the end of the case. My custody assistant was necessary throughout the procedure for tissue retraction, possible camera operation, and closure of the wounds. I understand that section 1842(b)(7)(D) of the Social Security act generally prohibits Medicare physician fee schedule payment for the services of assistants at surgery in teaching hospitals when qualified residents are available to furnish such services. I certify that the services for which payment is claimed were medically necessary and that no qualified resident was available to perform the services. I further understand that these services are subject to postpayment review by the Medicare carrier. I attest to the content of the Intraoperative Record and any orders documented therein. Any exceptions are noted below.
[2021-11-02] MEDS ORDERED: SUGAMMADEX SODIUM 200 MG/2 ML VIAL IV ONE (18:00)
[2021-11-02] MEDS: fentaNYL citrate 100 MCG/2 ML VIAL IV PRN ×4 (18:30→19:00)
--- NOTE | 2021-11-02 19:48 | Anesthesiology Progress Note ---
Date of Service November 02, 2021 Anesthesia Post Procedure Vital Signs Vital Signs: Temp Pulse Pulse Resp BP BP Pulse Ox 11/02/21 19:30 60 16 110/67 94 11/02/21 19:15 63 16 113/68 94 11/02/21 19:05 58 L 16 115/63 95 11/02/21 18:55 97.3 F L 59 L 16 119/69 95 11/02/21 18:45 59 L 16 108/65 94 11/02/21 18:35 59 L 16 114/73 93 11/02/21 18:25 97.2 F L 61 16 116/72 95 11/02/21 18:15 60 16 116/63 96 11/02/21 18:07 96.8 F L 75 12 121/57 L 94 11/02/21 16:37 97.9 F 59 L 16 113/86 99 11/02/21 16:00 18 95 11/02/21 14:40 61 18 131/78 100 11/02/21 13:55 54 L 14 134/89 100 11/02/21 11:44 97.3 F L 59 L 15 100 Pain Intensity Right Abdomen: Pain Intensity: 5 Transfer of Care Handoff Completed per policy Notes Mental Status: alert / awake / arousable and participated in evaluation Patient Amnestic to Procedure: Yes Nausea / Vomiting: adequately controlled Pain: adequately controlled Airway Patency, RR, SpO2: stable & adequate BP & HR: stable & adequate Hydration State: stable & adequate Anesthetic Complications: no major complications apparent and Pt Satisfied with anesthetic care
[2021-11-02] MEDS ORDERED: PROMETHAZINE HCL 12.5 MG in SODIUM CHLORIDE 0.9% 50 ML IV PRN (19:50)
[2021-11-02] MEDS ORDERED: MoRPHine SULFATE 2 MG/ML CARP IV PRN (19:50)
[2021-11-02] MEDS ORDERED: oxyCODONE/ACETAMINOPHEN 5mg/325mg TAB PO PRN (19:50)
[2021-11-02] MEDS ORDERED: diphenhydrAMINE Capsule 25 MG CAP PO PRN (19:50)
[2021-11-03] MEDS: SODIUM CHLORIDE 0.9% 1000ML 1,000 ML IV SCH ×3 (00:20→08:49)
[2021-11-03] MEDS: KETOROLAC 30 MG/ML VIAL IV PRN ×2 (00:26→08:49)
[2021-11-03] MEDS ORDERED: ENOXAPARIN INJ 40 MG/0.4 ML SYR SQ SCH (07:00)
--- NOTE | 2021-11-03 08:17 | Discharge Summary ---
Date of Service November 03, 2021 Admission HPI Per Admitting Provider Mayte is a 41 year old female who presented to the emergency room with complaint of right upper sided abdominal pain with radiation to her back that has been present since 6 AM. She states she has had similar episodes about 3 times this week which started on Saturday however have not been this severe. She has had similar episodes in the past but not as severe and thought it was due to her gluten allergy. She denies of any fevers, chills, nausea, vomiting, diarrhea, constipation, blood in the stools, acholic stools, difficulty urinating, blood in the urine. She recently changed to a keto diet in March and has lost some weight but not sure of exact amount and not a drastic weight change. She eats pretty healthy. No history of abdominal surgeries. Principal Diagnosis Acute cholecystitis Discharge Data Allergies Allergy/AdvReac Type Severity Reaction Status Date / Time latex Allergy Unknown BROKE OUT Verified 04/25/20 18:43 IN RASH paroxetine Allergy Unknown ITCHING, Verified 04/25/20 18:43 RACING THOUGHTS Procedures Performed Operation Date: 11/02/21 10:45 Actual Procedures p Laparoscopic Cholecystectomy - Yury Cano MD Ordered Studies 11/02/21 12:36 US gallbladder Stat Hospital Course (1) Acute calculous cholecystitis: Patient was admitted through the emergency department with acute cholecystitis. She was taken to the operating room, the details of which are dictated in a separate operative note. She did well following surgery and was transferred in stable condition to the PACU and subsequently to the floor. DVT prophylaxis with SCD boots and subcutaneous Lovenox. Incentive spirometry and early ambulation were encouraged for pulmonary toilet. Her diet was slowly advanced as tolerated. Pain control with IV Toradol, morphine, and p.o. Percocet. By the date of discharge, she was tolerating regular diet, not requiring any IV pain medication, and was up and ambulating without difficulty. She was discharged home in stable condition. She will follow-up in the office in 2 weeks. Total Time Total Time Spent Total Time Spent (In Minutes): 30 minutes Discharge Plan Discharge Items Patient Disposition: Home - Self-Care Reason For Visit: PAIN IN UPPER ABDOMINAL GOING TO BACK Discharge Diagnosis: Acute cholecystitis Activity: Per Instructions section Lifting: No more than 25 pounds Bathing: May shower/bathe in 3 days Sexual Activity: Wait until after follow-up appointment Exercise/Sports: Wait until after follow-up appointment Non-emergency contact: Surgeon Call non-emergency contact if: you have any medication questions, your symptoms worsen, your pain is not controlled, your pain is unusual for you, your pain is concerning for you, your temperature is above 101.5, your wound has increased redness, your wound has increased drainage and your wound pain has increased Follow-up/Referrals: Nina Thompson CRNP [Primary Care Provider] - Diet: Regular Addtl Attending Provider Instructions: Post-Surgical ~Discharge Instructions Activity Recommendations: - lifting limitation: (25 pounds for 2 weeks), - exercise/sex/sports limit: (nonstrenuous for 2 weeks), - driving or machine use limit: (none for 1 week), - Shower/bathe limit: (may shower beginning tomorrow) Diet: - Resume previous diet SPECIAL CARE INSTRUCTIONS: - May shower in 24 hours. Let water run over area and pat dry. - Leave Dermabond in place. - Call the surgeon's office with any questions or concerns - - (ex. temperature higher than 101 degrees F, excessive bleeding or pain). MEDICATIONS: - Resume previous medications unless instructed otherwise by your surgeon. - Ibuprofen 600 mg every 6 hours with food - Percocet 1 every 4 hours, as needed for pain FOLLOW UP VISIT: - If not already scheduled, please call the office to schedule a two week follow-up appointment. Office number Pending Studies at Discharge: No Stand-Alone Forms: My [facility] DLS, Smoking Cessation Medications and DC Order Prescriptions: New oxycodone-acetaminophen [Percocet] 5-325 mg tablet 1 tab PO Q6H PRN (Reason: pain) Qty: 10 RF: 0 Continued sertraline 100 mg tablet 100 mg PO DAILY RF: 0 Discharge Orders: Discharge Order (Routine); Ordered 11/03/21 Ordered By: Yury Cano Admission Data Admit Date/Time: 11/02/21 17:49 Attending Provider: Yury Cano Admit Provider: Yury Cano Primary Care Provider: Nina Thompson
--- NOTE | 2021-11-03 08:25 | Surgery Progress Note ---
Date of Service November 03, 2021 Assessment & Plan (1) Acute calculous cholecystitis: Plan: Postop day 1 status post lap cholecystectomy. She is doing quite well. We will advance her diet to regular. Encouraged ambulation. We will plan to discharge today around lunchtime. We will follow-up in the office in 2 weeks. Admission and Anticipated Discharge Date Admission Date: November 02, 2021 Subjective Postoperative day 1 status post lap smith for acute cholecystitis. She denies nausea or vomiting. She does have some soreness in her incisions. She denies fevers or chills. Physical Exam Constitutional: WD/WN, vitals as above Gastrointestinal (Abdomen): Inspection/Auscultation: + abdominal surgical incision (Healing well, Dermabond, no erythema/discharge) Percussion/Palpation: + abdomen tender (Incisional) and abdomen soft; no guarding and abdomen not rigid Skin: no rashes, warm and dry Psychiatric: A+Ox3, euthymic affect Results & Data ([facility]) Vital Signs (Past 12 Hours) Vital Signs Temp Pulse Resp BP Pulse Ox 11/03/21 07:37 36.9 C 56 L 16 97/59 L 97 11/03/21 03:05 36.8 C 56 L 16 106/64 96 11/02/21 21:40 36.8 C 74 16 106/69 94 11/02/21 20:40 36.7 C 63 16 112/70 94
--- NOTE | 2021-11-03 19:26 | Electrocardiogram Report ---
Test Reason : Blood Pressure : / mmHG Vent. Rate : 053 BPM Atrial Rate : 053 BPM P-R Int : 092 ms QRS Dur : 088 ms QT Int : 452 ms P-R-T Axes : 041 073 029 degrees QTc Int : 424 ms Sinus bradycardia with short PA Nonspecific T wave abnormality When compared with ECG of 25-APR-2020 18:40, Nonspecific T wave abnormality has replaced inverted T waves in Inferior leads T wave inversion less evident in Anterior leads Confirmed by Damián Austin ([id number]) on 11/03/2021 7:26:19 PM Referred By: REFERRED SELF Confirmed By:Damián Austin
== END 2021-11-03 09:39 | disposition home or self-care (01) ==
LOC: ED 11:41 → 3W 16:26 → OR 16:26
DX: K80.12 Calculus of gallbladder with acute and chronic cholecystitis without obstruction; Z88.8 Allergy status to other drugs, medicaments and biological substances; Z91.040 Latex allergy status